=== PATIENT | female | born 1995 | race Two or more races ===

== ENCOUNTER 2017-03-25 15:33 | Emergency (ER) | payer OTHER ==
[2017-03-25 16:11] LABS: INFLUENZA A POSITIVE (NONE DETECT); INFLUENZA B NONE DETECTED (NONE DETECT)
[2017-03-25] MEDS ORDERED: TAM75CAP PO (16:29)
[2017-03-25 16:31] VITALS: BP 119/77
== END 2017-03-25 16:44 | disposition home or self-care (01) | DRG 153 ==
LOC: ED 15:33
PROVIDERS: Emergency Medicine
DX: J11.1 Influenza due to unidentified influenza virus with other respiratory manifestations (principal)

== ENCOUNTER 2018-06-29 23:59 | Emergency (ER) | payer OTHER ==
[~2018-06-29] VITALS: Ht 154.9 cm; Wt 72.7 kg
[~2018-06-29 23:59] MED LIST: TAM75CAP PO
[2018-06-30 00:56] LABS: HEMATOCRIT 43.1 % (37.0-47.0); HEMOGLOBIN 13.6 g/dl (12.0-16.0); IMMATURE GRANULOCYTES 0.4 % (0.0-5.0); MEAN CELL VOLUME 82.4 fL CALC (80.0-100.0); MEAN CORPUSCULAR HGB CONC 31.6 g/L CALC (32.0-36.0); NEUT# 5.89 thou/uL (2.00-7.15); RED BLOOD COUNT 5.23 mill/uL (4.20-5.60); RED CELL DISTRI WIDTH 13.9 % (11.5-15.5)
[2018-06-30 01:04] LABS: ALBUMIN 4.2 g/dL (3.2-5.0); ALKALINE PHOSPHATASE 79 u/l (38-126); ANION GAP 13 (6-22 (CALC)); BILIRUBIN, TOTAL 0.3 mg/dL (0.0-1.4); BUN 10 mg/dL (7-17); BUN/CREATININE RATIO 14 (12-20 (CALC)); CARBON DIOXIDE 28 mmol/l (22-30); CHLORIDE 104 mmol/l (95-108); CREATININE 0.7 mg/dL (0.5-1.0); GFR > 60 ML/MIN (>=60 (CALC)); GFR FOR AFR.AMER. > 60 ML/MIN (>=60 (CALC)); POTASSIUM 3.8 mmol/l (3.5-5.1); SGOT/AST 27 u/l (14-36); SODIUM 140 mmol/l (137-146); TOTAL PROTEIN 7.5 g/dL (6.3-8.2)
[2018-06-30 01:48] LABS: C. DIFFICILE TOXIN A&B NEGATIVE (NEGATIVE)
[2018-06-30] MEDS ORDERED: BENTYL10 MG PO (01:58)
[2018-06-30] MEDS ORDERED: LOMOTIL2.5 MG PO (01:58)
[2018-06-30 02:15] VITALS: BP 121/72
== END 2018-06-30 02:16 | disposition home or self-care (01) | DRG 392 ==
LOC: ED 23:59
PROVIDERS: Family Medicine
DX: R19.7 Diarrhea, unspecified (principal); R19.5 Other fecal abnormalities; R10.33 Periumbilical pain; R50.9 Fever, unspecified